=== PATIENT | female | born 1995 | race Caucasian/White ===

== ENCOUNTER 2024-02-23 18:10 | Inpatient (IN) ==
[2024-02-23] MEDS ORDERED: Lidocaine 1% VIAL 10 MG/ML 30 ML VIAL INJ PRN (18:43)
[2024-02-23] MEDS ORDERED: Buffered Lidocaine 1% SYRIN 1 ml INTRADERM ONE (18:43)
[2024-02-23 19:18] LABS: ABS Eosinophils 0.1 10^3/uL (0.0-0.5); ABS Lymphocytes 3.3 10^3/uL (1.0-4.8); ABS Neutrophils 9.4 10^3/uL (1.5-7.6); ABS Nucleated RBC 0.02 10^3/ul; Eosinophil % 0.6 %; Hematocrit 35.7 % (35-45); Hemoglobin 12.3 g/dL (11.5-14.3); Lymphocyte % 23.9 %; Mean Corpuscular Hemoglobin 28.5 pg (27-33); Mean Corpuscular Hgb Conc 34.5 g/dL (31-36); Mean Corpuscular Volume 82.6 fL (80-97); Mean Platelet Volume 7.8 fL (7.5-11.2); Nucleated Red Blood Cells % 0.1 %/100WBC (0.0-0.8); Platelet Count 293 10^3/uL (150-450); Red Blood Count 4.32 10^6/uL (3.63-4.92); Red Cell Distribution Width 13.6 % (12-17); White Blood Count 13.7 10^3/uL (3.8-11.8)
[2024-02-23] MEDS: Oxytocin in LR 20,000 MILLI.UNIT/1,000 ML BAG IV SCH (19:20)
[2024-02-23] MEDS: Lactated Ringers 1000 ml BAG 1,000 ML IV SCH (19:20)
[2024-02-23 19:40] LABS: Urine Benzodiazepine Screen None Detected (None Detect); Urine Opiates Screen None Detected (None Detect)
[2024-02-23] MEDS: Prochlorperazine 5 mg/ml 2 ml VIAL (10 mg) IV PRN (22:24)
[2024-02-23] MEDS: Morphine 10 MG/ML VIAL (1 ml) IV ONE (22:32)
[2024-02-24] MEDS ORDERED: Lidocaine/Epinephrin 1.5%/200 5 ML AMP INJ ONE (00:23)
[2024-02-24] MEDS ORDERED: OBEPIDURAL (200 ML) 0 ML EPIDURAL ONE (00:24)
[2024-02-24] MEDS: Lactated Ringers 1000 ml BAG 1,000 ML IV ONE (00:32)
[2024-02-24] MEDS ORDERED: Glycerin ADULT 2.4 gm SUPP PR PRN (01:14)
[2024-02-24] MEDS ORDERED: Lactated Ringers 1000 ml BAG 1,000 ML IV SCH (02:00)
[2024-02-24] MEDS: Dibucaine 1% OINT 28.35 GM TUBE PR PRN (02:41)
[2024-02-24] MEDS: Witch Hazel PAD JAR TOPICAL PRN (02:41)
[2024-02-25 06:16] LABS: ABS Eosinophils 0.1 10^3/uL (0.0-0.5); ABS Lymphocytes 3.9 10^3/uL (1.0-4.8); ABS Monocytes 0.8 10^3/uL (0.0-0.9); ABS Neutrophils 7.2 10^3/uL (1.5-7.6); ABS Nucleated RBC 0.01 10^3/ul; Eosinophil % 1.2 %; Hematocrit 30.5 % (35-45); Hemoglobin 10.6 g/dL (11.5-14.3); Lymphocyte % 32.2 %; Mean Corpuscular Hemoglobin 28.8 pg (27-33); Mean Corpuscular Hgb Conc 34.6 g/dL (31-36); Mean Corpuscular Volume 83.3 fL (80-97); Mean Platelet Volume 7.8 fL (7.5-11.2); Nucleated Red Blood Cells % 0.1 %/100WBC (0.0-0.8); Platelet Count 232 10^3/uL (150-450); Red Blood Count 3.66 10^6/uL (3.63-4.92); White Blood Count 12.1 10^3/uL (3.8-11.8)
[2024-02-25 07:39] VITALS: BP 103/64
[2024-02-25] MEDS: medroxyPROGESTERone ACETATE 150 MG/ML VIAL IM ONE (10:43)
== END 2024-02-25 11:20 | disposition home or self-care (01) | DRG 560 ==
LOC: MCHOBOUT 18:10 → MCHOB 18:18
PROVIDERS: ADMIT Registered Nurse; ATTEND Registered Nurse